=== PATIENT | female | born 1960 | race Caucasian/White ===

== ENCOUNTER 2018-09-29 19:17 | Emergency (ER) | payer BC, OTHER ==
[2018-09-29] MEDS: LIDOCAINE 1% (MPF) 5 ML VIAL INFIL (20:04)
[2018-09-29] MEDS: DIPHTH/TET/ACEL PERTUSS (ADULT) 0.5 ML VIAL IM* (20:18)
== END 2018-09-29 20:33 | disposition home or self-care (01) ==
LOC: FTE 19:17
DX: S61.011A Laceration without foreign body of right thumb without damage to nail, initial encounter (principal); X58.XXXA Exposure to other specified factors, initial encounter; Y92.000 Kitchen of unspecified non-institutional (private) residence as the place of occurrence of the external cause; Z23 Encounter for immunization
CPT/HCPCS: 12001; 90471; 90715; 99283-25